=== PATIENT | male | born 1960 | race Caucasian/White ===

== ENCOUNTER → 2024-03-23 09:00 | Outpatient (REF) | payer BC, SELFPAY | LOC: DHSLP 09:00 | PROVIDERS: ATTENDING PHYSICIAN Internal Medicine; FAMILY PHYSICIAN Family Medicine | DX: G47.33 Obstructive sleep apnea (adult) (pediatric) (principal) | CPT/HCPCS: 95811 ==

== ENCOUNTER → 2024-09-28 14:32 | Outpatient (REF) | payer BC, SELFPAY | LOC: HWRAD 14:32 | PROVIDERS: ATTENDING PHYSICIAN Family Medicine | DX: R05.1 Acute cough (principal) | CPT/HCPCS: 71046 ==

== ENCOUNTER → 2024-11-01 15:05 | Outpatient (REF) | payer MEDICARE, BC, SELFPAY | LOC: RAD 15:05 | PROVIDERS: ATTENDING PHYSICIAN Family Medicine | DX: R10.32 Left lower quadrant pain (principal) | CPT/HCPCS: 74177; Q9967 ==

== ENCOUNTER 2025-05-31 06:11 | Day surgery (SDC) | payer MEDICARE, BC, SELFPAY | END 2025-05-31 09:44 | disposition home or self-care (01) | LOC: GI 06:11 | PROVIDERS: ATTENDING PHYSICIAN Internal Medicine Gastroenterology | DX: Z12.11 Encounter for screening for malignant neoplasm of colon (principal); D12.2 Benign neoplasm of ascending colon; D12.3 Benign neoplasm of transverse colon; D12.4 Benign neoplasm of descending colon; K64.8 Other hemorrhoids | CPT/HCPCS: 45385; 88305 ==